=== PATIENT | male | born 1970 | race Caucasian/White ===

== ENCOUNTER → 2018-12-18 08:25 | Outpatient (CLI) | payer OTHER, SELFPAY ==
--- NOTE | 2018-12-18 08:29 | RAD_ITS ---
STUDY: X-RAY - LEFT KNEE REASON FOR EXAM: Male, 48 years old. Pain TECHNIQUE: 4 view(s) of the knee. COMPARISON: None. FINDINGS: Normal visualized distal femur. Normal visualized proximal tibia and fibula. Normal proximal tibiofibular articulation. Normal medial femorotibial compartment. Normal lateral femorotibial compartment. Slightly narrowed patellofemoral articulation. Trace effusion. The soft tissue structures are unremarkable. Previous ACL surgery. RAD/Knee 4 or More Views IMPRESSION: Mild degenerative changes with trace suprapatellar effusion of the knee. No acute bony injury. Electronically Signed: Dennis Baird DO at 9:18 EST Tel [phone], Service support ,
== END ==
PROVIDERS: Referring Provider Orthopaedic Surgery; Visit Provider Orthopaedic Surgery
DX: M25.562 Pain in left knee (principal)
CPT/HCPCS: 73564